=== PATIENT | female | born 2000 | race Caucasian/White ===

== ENCOUNTER → 2022-10-19 10:45 | Outpatient (BNV) | payer OTHER, SELFPAY | PROVIDERS: Visit Provider Psychiatry & Neurology Psychiatry | DX: F43.22 Adjustment disorder with anxiety (principal) | CPT/HCPCS: 90792; 99202; 99213 ==

== ENCOUNTER 2022-11-02 10:45 | Outpatient (RCR) | payer OTHER, SELFPAY ==
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
[2022-10-19 14:12] VITALS: BP 102/65; PULSE 83; TEMP 37
[2022-10-19 14:14] VITALS: BMI 18.8
--- NOTE | 2022-10-21 15:54 | HO.PHP ---
Clients case was reviewed and opened in clinical team
--- NOTE | 2022-10-25 09:33 | PC.NURSE ---
Caroline did not show up to the program this morning. I tried to call Caroline however was not able to leave a message. I called her emergency contact her mother Xiao and was not able to leave a message with her as well.
--- NOTE | 2022-10-25 10:59 | HO.PHP ---
When I could not reach the client I called her mother, Xiao to inquire about the clients absence. She States that Jovanna overslept and will be in tomorrow.
--- NOTE | 2022-10-28 15:02 | HO.PHPPROGNO ---
Subjective Subjective Date of Service: 10/28/22 Reason For Visit: EMILIE,MDD Interim History: pt started celexa 3 days ago- no side effects; still anxious; long term care phlebotomist trouble sleeping- reports she doesn't drink caffeine in evening. reports the hydroxyzine has no negativ side effects but she hasn'tt used at night fro sleep. agreeable to try it for sleep. no SI or Hi. feels groups are helpful. continues to grieve,. Medication Compliance: Yes Review of Systems Acute medical concerns: No Review of Systems Review of Systems no changes Mental Status Exam Mental Status Exam Narrative: In today's visit she is alert, oriented and pleasant. Normal speech. Good eye contact. Affect is appropriate and subdued. No signs of psychosis. No cognitive deficits. No active suicidal or homicidal ideations. Cognitively is intact. Judgment is intact Diagnostics Vital Signs (24Hr): BMI result Body Mass Index 18.8 Assessment & Plan Assessment & Plan (1) Adjustment disorder with anxious mood: Status: Acute Code(s): F43.22 - Adjustment disorder with anxiety Plan She meets criteria for partial hospital program. She is going to be finding out about therapist and psychiatrist associated with her insurance. In the meanwhile we discussed options. Even though she has been on Zoloft before she elected to go with Celexa which may not be covered by her insurance but we will review that later in the week. Side effects discussed. plan continue celexa increase hydroxyzine 25 mg bid prn anxiety/sleep trial OTC mG+ glycinate 100-200mg at bedtiem Patient educated on: diagnosis, medication risk/benefits and therapeutic strategies Informed Consent: understands and further education needed Reason for contiued partial hosp. stay Substantial Risk for: harm to self and inability to function Certification I certify that partial hospital treatment is medically necessary due to the symptoms and problems resulting from the patient's mental illness and the failure to treat the patient at the partial hospital level of care would likely result in the patient requiring inpatient psychiatric care which could not be prevented at a less intensive level of care. Total time managing care of this patient today ____ minutes. Discharge Plan Discharge Attending provider: Eleazar Lennon Medications: New citalopram 20 mg tablet 20 mg PO DAILY Qty: 30 0RF No Action norgestimate-ethinyl estradiol [Tri-Estarylla] 0.18/0.215/0.25 mg-35 mcg (28) Tablet 1 tab PO DAILY hydroxyzine HCl 25 mg tablet 25 - 50 mg PO QD-TID PRN (Reason: anxiety) Stand Alone Forms: Patient Portal Discharge page
--- NOTE | 2022-11-01 12:57 | HO.PHP ---
JAIME gave me an appointment time for Caroline 11/15. Caroline states that she can not do that time because she is going to be gone for her vacation. I called and they are rescheduling her appointment.
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
== END 2022-11-02 23:59 | disposition home or self-care (01) ==
LOC: HO.PHPA 10:45
PROVIDERS: Visit Provider Psychiatry & Neurology Psychiatry
DX: F43.22 Adjustment disorder with anxiety (principal)
CPT/HCPCS: 90791; 90853